=== PATIENT | female | born 1965 ===

== ENCOUNTER 2018-10-05 09:06 | Outpatient (CLI) | payer OTHER ==
[~2018-10-05] VITALS: Ht 180.3 cm; Wt 99.8 kg
[2018-10-05] MEDS ORDERED: DUI500 PO (12:32)
[2018-10-05] MEDS ORDERED: NASAL SPRAY30 M1 NASAL (12:33)
== END 2018-10-05 09:20 | disposition home or self-care (01) ==
LOC: OFIC 805 09:06
DX: J32.4 Chronic pansinusitis (principal); J34.2 Deviated nasal septum; Q30.3 Congenital perforated nasal septum

== ENCOUNTER → 2020-08-28 | Outpatient (CLI) | payer OTHER ==
[~2020-08-28] MED LIST: DUI500 PO; NASAL SPRAY30 M1 NASAL
== END | disposition home or self-care (01) ==
LOC: RAD 14:06
PROVIDERS: ATTEND Internal Medicine
DX: M77.32 Calcaneal spur, left foot (principal); M25.572 Pain in left ankle and joints of left foot; M79.641 Pain in right hand; M79.642 Pain in left hand